=== PATIENT | female | born 1935 | race Caucasian/White ===

== ENCOUNTER 2016-07-15 11:45 | Inpatient (IN) | payer MEDICARE, OTHER ==
[2016-07-15] MEDS ORDERED: ACETAMINOPHEN TAB 325 MG TAB PO STA (12:35)
--- NOTE | 2016-07-15 12:49 | ED ---
Fall HPI - General Chief Complaint: Fall Stated Complaint: Fall. R Hip Pain, R Shoulder Pain Time Seen by Provider: 07/15/16 12:15 Source: patient, EMS Mode of arrival: wheelchair Limitations: altered mental status - History of Present Illness Initial Comments: The patient is a 80-year-old female who presents to the emergency department with a chief complaint fall. The patient resides at [facility] where she was found on the ground earlier today. According to staff at this facility, the patient slipped out of her wheelchair and fell onto her right side. The patient was not on the ground for a long period of time. After the fall, the patient was complaining of pain in her right shoulder as well as in her right hip. The patient takes a daily ASA 182 mg. The patient is not on any systemic anticoagulation. The patient is AAO 1 at baseline, oriented to herself only. Patient denies any pain on initial evaluation. According to staff at the nursing facility, the patient did not hit her head during her fall. Unfortunately, the patient cannot confirm this given her dementia. Patient denies any shortness of breath. Patient denies any abdominal pain. Patient denies any chest pain prior to the fall. - Related Data Home Medications Medication Instructions Recorded Confirmed Acetaminophen Tab [Tylenol Tab] 650 mg PO DAILY 07/15/16 07/15/16 Acetaminophen Tab [Tylenol Tab] 650 mg PO Q4H PRN 07/15/16 07/15/16 Aspirin EC [Ecotrin Low Dose] 162 mg PO DAILY@1700 07/15/16 07/15/16 Bisacodyl [Dulcolax] 10 mg RECTAL DAILY PRN 07/15/16 07/15/16 Donepezil [Aricept] 10 mg PO HS 07/15/16 07/15/16 LORazepam [Ativan] 0.5 mg PO Q12H PRN 07/15/16 07/15/16 Magnesium Hydroxide [Milk of 7,200 mg PO DAILY PRN 07/15/16 07/15/16 Magnesia Concentrate] Meloxicam [Mobic] 7.5 mg PO DAILY 07/15/16 07/15/16 Multivitamins, Thera [Multivitamin] 1 tab PO DAILY@1700 07/15/16 07/15/16 Na Phos,M-B/Na Phos,Di-Ba [Fleet 133 ml RECTAL DAILY PRN 07/15/16 07/15/16 Adult] Omeprazole [PriLOSEC] 20 mg PO DAILY 07/15/16 07/15/16 Timolol 0.5% Ophth Soln [Timoptic 1 drop BOTH EYES BID 07/15/16 07/15/16 0.5% Ophth Soln] risperiDONE [RisperDAL] 0.25 mg PO TID@0800,1400,2000 07/15/16 07/15/16 traZODone HCL [Desyrel] 50 mg PO HS 07/15/16 07/15/16 Allergies Allergy/AdvReac Type Severity Reaction Status Date / Time No Known Allergies Allergy Verified 07/15/16 11:59 Review of Systems ROS Statement: Those systems with pertinent positive or pertinent negative responses have been documented in the HPI. Unable to gather an extensive review of systems secondary to patient's underlying history of dementia. ROS Other: All systems not noted in ROS Statement are negative. Limitations: ROS unobtainable due to patients medical condition Musculoskeletal: Reports: other (Right shoulder pain. Right hip pain.) Past Medical History Past Medical History: Dementia, GERD/Reflux, Osteoarthritis (OA) History of Any Multi-Drug Resistant Organisms: None Reported Past Surgical History: Unable to Obtain Past Psychological History: No Psychological Hx Reported Smoking Status: Never smoker Past Alcohol Use History: None Reported Past Drug Use History: None Reported General Exam Limitations: altered mental status, physical limitation General appearance: alert, in no apparent distress Head exam: Present: atraumatic, normocephalic, normal inspection Eye exam: Present: normal appearance, PERRL (Pupils are 2 mm, equal and reactive ), EOMI. Absent: scleral icterus, conjunctival injection, periorbital swelling Pupils: Present: normal accommodation ENT exam: Present: normal exam, mucous membranes moist Neck exam: Present: normal inspection, other (No tenderness to palpation of the spinous processes of the cervical region of the spine. Patient in [place] collar) . Absent: tenderness Respiratory exam: Present: normal lung sounds bilaterally. Absent: respiratory distress, wheezes, rales, rhonchi, chest wall tenderness, decreased breath sounds Cardiovascular Exam: Present: regular rate, normal rhythm, normal heart sounds GI/Abdominal exam: Present: soft. Absent: distended, tenderness, guarding, rebound, rigid Extremities exam: Present: normal inspection, tenderness (Tenderness to palpation of the right upper humerus. Patient with 4-5 strength of the bilateral upper extremities. Patient with 2 out of 5 strength of the bilateral lower extremities.), other (No pain with rolling of the right lower extremity. No point tenderness to palpation of the right hip.) Back exam: Present: normal inspection. Absent: tenderness Neurological exam: Present: alert, other (Patient is AAO 1, which is her baseline.) Psychiatric exam: Present: normal affect, normal mood. Absent: depressed, agitated Skin exam: Present: warm, dry, intact Course Vital Signs 07/15/16 11:48 Temperature 96.9 F L Pulse Rate 66 Respiratory 15 Rate Blood Pressure 187/92 O2 Sat by Pulse 98 Oximetry Medical Decision Making - Medical Decision Making Patient is 80-year-old female who presents from nursing facility status post fall. Patient takes an aspirin 162 mg on a daily basis. No obvious signs of head injury. Staff at nursing facility state the patient did not hit her head. Fall but we'll be cautious in order CT head and CT cervical spine for patient an aspirin collar until after these exams performed C-spine can be cleared appropriately. Unfortunately, patient is AAO 1 at baseline. She remains that status in the ED. Patient complaining primarily of right shoulder pain. There is some point tenderness in the proximal humerus. However, there is no obvious deformity. There isswelling or bruising evident. EMS run sheet states the patient also complaining of right lower extremity pain, particularly in the hip region. There are note states that the patient's right lower extremity was externally rotated and on initial examination. However, the patient has a normal-appearing right hip on inspection. There is no point tenderness. She does complain of some mild pain within the joint itself. Otherwise distal pulses, movement, sensation noted to be intact. Check CBC, BMP, mag. Check PT/ INR. CPK. Check UA. EKG given patient's age. Chest x-ray, XR right shoulder , XR pelvis and right hip. EKG demonstrates NSR with evidence of a left bundle branch block. The QRS is within normal limits, however the QTC is prolonged at 510. MD is within normal limits. No evidence of any ischemic changes. - Lab Data Result diagrams: 07/15/16 12:50 07/15/16 12:50 Lab Results 12/07/15/16 07/15/16 Range/Units 12:50 12:50 12:50 WBC 7.3 (3.8-10.6) k/uL RBC 3.85 (3.80-5.40) m/uL Hgb 12.0 (11.4-16.0) gm/dL Hct 34.0 (34.0-46.0) % MCV 88.4 (80.0-100.0) fL MCH 31.1 (25.0-35.0) pg MCHC 35.2 (31.0-37.0) g/dL RDW 13.2 (11.5-15.5) % Plt Count 226 (150-450) k/uL Neutrophils % 83 % Lymphocytes % 11 % Monocytes % 3 % Eosinophils % 1 % Basophils % 1 % Neutrophils # 6.1 (1.3-7.7) k/uL Lymphocytes # 0.8 L (1.0-4.8) k/uL Monocytes # 0.2 (0-1.0) k/uL Eosinophils # 0.1 (0-0.7) k/uL Basophils # 0.0 (0-0.2) k/uL PT 11.8 (9.0-12.0) sec INR 1.2 (<1.1) Sodium 143 (137-145) mmol/L Potassium 3.7 (3.5-5.1) mmol/L Chloride 105 (98-107) mmol/L Carbon Dioxide 27 (22-30) mmol/L Anion Gap 11 mmol/L BUN 12 (7-17) mg/dL Creatinine 0.70 (0.52-1.04) mg/dL Est GFR (MDRD) Af Amer >60 (>60 ml/min/1.73 sqM) Est GFR (MDRD) Non-Af >60 (>60 ml/min/1.73 sqM) Glucose 109 H (74-99) mg/dL Calcium 8.7 (8.4-10.2) mg/dL Magnesium 2.0 (1.6-2.3) mg/dL Creatine Kinase 51 (30-135) U/L Urine Color Urine Appearance (Clear) Urine pH (5.0-8.0) Ur Specific [place] (1.001-1.035) Urine Protein (Negative) Urine Glucose (UA) (Negative) Urine Ketones (Negative) Urine Blood (Negative) Urine Nitrate (Negative) Urine Bilirubin (Negative) Urine Urobilinogen (<2.0) mg/dL Ur Leukocyte Esterase (Negative) 07/15/16 Range/Units 15:20 WBC (3.8-10.6) k/uL RBC (3.80-5.40) m/uL Hgb (11.4-16.0) gm/dL Hct (34.0-46.0) % MCV (80.0-100.0) fL MCH (25.0-35.0) pg MCHC (31.0-37.0) g/dL RDW (11.5-15.5) % Plt Count (150-450) k/uL Neutrophils % % Lymphocytes % % Monocytes % % Eosinophils % % Basophils % % Neutrophils # (1.3-7.7) k/uL Lymphocytes # (1.0-4.8) k/uL Monocytes # (0-1.0) k/uL Eosinophils # (0-0.7) k/uL Basophils # (0-0.2) k/uL PT (9.0-12.0) sec INR (<1.1) Sodium (137-145) mmol/L Potassium (3.5-5.1) mmol/L Chloride (98-107) mmol/L Carbon Dioxide (22-30) mmol/L Anion Gap mmol/L BUN (7-17) mg/dL Creatinine (0.52-1.04) mg/dL Est GFR (MDRD) Af Amer (>60 ml/min/1.73 sqM) Est GFR (MDRD) Non-Af (>60 ml/min/1.73 sqM) Glucose (74-99) mg/dL Calcium (8.4-10.2) mg/dL Magnesium (1.6-2.3) mg/dL Creatine Kinase (30-135) U/L Urine Color Yellow Urine Appearance Clear (Clear) Urine pH 6.5 (5.0-8.0) Ur Specific [place] 1.009 (1.001-1.035) Urine Protein Negative (Negative) Urine Glucose (UA) Negative (Negative) Urine Ketones 1+ H (Negative) Urine Blood Negative (Negative) Urine Nitrate Negative (Negative) Urine Bilirubin Negative (Negative) Urine Urobilinogen <2.0 (<2.0) mg/dL Ur Leukocyte Esterase Negative (Negative) Disposition Clinical Impression: Closed right hip fracture, Closed fracture of right proximal humerus, Fall Disposition: ADMITTED IP TO THIS HOSP Condition: Stable Decision to Admit Reason: Admit from EC
[2016-07-15 13:02] LABS: Basophils % (A) 1 %; CH 31.8; CHCM 36.1; Eosinophils # (A) 0.1 k/uL (0-0.7); Eosinophils % (A) 1 %; HDW 3.01; Luc # (Auto) 0.05; Luc % (Auto) 1; Lymphocytes # (A) 0.8 k/uL (1.0-4.8); Lymphocytes % (A) 11 %; MCH 31.1 pg (25.0-35.0); MCHC 35.2 g/dL (31.0-37.0); MCV 88.4 fL (80.0-100.0); Mean Platelet Volume 6.6; Monocytes # (A) 0.2 k/uL (0-1.0); Monocytes % (A) 3 %; Neutrophils # (A) 6.1 k/uL (1.3-7.7); Neutrophils % (A) 83 %; RBC 3.85 m/uL (3.80-5.40); RDW 13.2 % (11.5-15.5); WBC 7.3 k/uL (3.8-10.6); WBC (Perox) 7.39
[2016-07-15 13:14] LABS: Anion Gap 11 mmol/L; Blood Urea Nitrogen 12 mg/dL (7-17); Calcium 8.7 mg/dL (8.4-10.2); Carbon Dioxide 27 mmol/L (22-30); Chloride 105 mmol/L (98-107); Creatine Kinase 51 U/L (30-135); Glucose 109 mg/dL (74-99); Non-African American GFR(MDRD) >60 (>60 ml/min/1.73 sqM); Potassium 3.7 mmol/L (3.5-5.1); Sodium 143 mmol/L (137-145)
[2016-07-15 13:19] LABS: INR 1.2 (<1.1); Prothrombin Time 11.8 sec (9.0-12.0)
--- NOTE | 2016-07-15 14:07 | CT ---
EXAMINATION TYPE: CT brain leonardo aguilar DATE OF EXAM: 07/15/2016 1:57 PM COMPARISON: NONE HISTORY: Patient poor historian. Patient fell today. Patient c-collared at time of exam. CT DLP: 1376.9 mGycm Automated exposure control for dose reduction was used. TECHNIQUE: CT scan of the head and cervical spine are performed without contrast. FINDINGS: There is no acute intracranial hemorrhage or midline shift identified. There is ventricul ar and sulcal prominence consistent with diffuse cerebral atrophy. Is low-attenuation periventricula r white matter consistent with product of chronic small vessel ischemic change. The globes are intact and the visualized sinuses are clear. The calvarium is intact Cervical spine is visualized in its entirety from C1 through upper thoracic levels and demonstrates e xaggerated cervical curvature without evidence of acute fracture or dislocation. Prevertebral soft t issue appears within normal limits. The C1-C2 articulation is within normal limits on the coronal im ages. Osseous structures are markedly demineralized. Vertebral body heights are maintained. There is modera te to severe spurring and moderate disc space narrowing C5-C6 and C6-C7 levels. Posterior spur disc c omplex effaces anterior thecal sac at C5-C6 level. Review of axial images shows multilevel uncoverteb ral facet degenerative changes bilaterally. Visualized lung apices are clear. IMPRESSION: 1. There is no acute fracture or dislocation evident in the cervical spine. Demineralization with mul tilevel degenerative changes are seen as detailed above. 2. No acute intracranial hemorrhage or midline shift is seen. There is background of moderate to tj re diffuse cerebral atrophy and chronic small vessel ischemic change noted.
--- NOTE | 2016-07-15 14:57 | XR ---
EXAMINATION TYPE: XR chest 1V DATE OF EXAM: 07/15/2016 2:51 PM COMPARISON: NONE HISTORY: Pain TECHNIQUE: Single frontal view of the chest is obtained. FINDINGS: There is no focal air space opacity, pleural effusion, or pneumothorax seen. The cardiac silhouette size is within normal limits. The osseous structures are intact. The heart is enlarged. There is diffuse osteopenia and severe arthritic change involving the shoulder s bilaterally findings suspicious for fracture involving the humeral neck. IMPRESSION: 1. Cardiomegaly 2. Right humeral neck fracture
--- NOTE | 2016-07-15 14:59 | XR ---
EXAMINATION TYPE: XR shoulder complete RT DATE OF EXAM: 07/15/2016 2:51 PM CLINICAL HISTORY: Right shoulder pain since fall injury. TECHNIQUE: Three views of the right shoulder are obtained. COMPARISON: None. FINDINGS: Osseous structures are significantly demineralized which is noted to lower radiographic sen sitivity. There may be old fracture deformity right humeral head level as there is deformity. There i s new linear lucency consistent with acute comminuted minimally displaced fracture surgical neck of r ight proximal humerus. Involvement of greater and lesser tuberosities is difficult to exclude. Acromi oclavicular joint is maintained. There is prominent spurring and joint space loss glenohumeral joint inferiorly with sclerosis. The visualized ribs are intact and unremarkable. IMPRESSION: There is an acute comminuted minimally displaced fracture right proximal humeral head le mis through the surgical neck. (Initial encounter close type post traumatic fracture).
--- NOTE | 2016-07-15 14:59 | XR ---
EXAMINATION TYPE: XR Hip RT and AP Pelvis DATE OF EXAM: 07/15/2016 2:51 PM COMPARISON: NONE HISTORY: Pain TECHNIQUE: A single AP view of the pelvis is obtained. Two views of the right hip are obtained. FINDINGS: There is acute displaced fracture involving the right femoral neck. Diffuse osteopenia noted. Degenerative change of the spine. Arthropathy involving both hip joints. Vascular calcifications in the pelvis noted. Larger calcifications may represent fibroid. IMPRESSION: 1. Displaced right femoral neck fracture
[2016-07-15 15:41] LABS: Appearance,Urine Clear (Clear); Bilirubin,Urine Negative (Negative); Glucose,Urine (UA) Negative (Negative); Ketones,Urine 1+ (Negative); Leukocyte Esterase,Urine Negative (Negative); Nitrite,Urine Negative (Negative); PH, Urine 6.5 (5.0-8.0); Protein,Urine Negative (Negative); Specific Gravity,Urine 1.009 (1.001-1.035); UA Billing (MACRO vs. MICRO) CHEM; Urobilinogen,Urine <2.0 mg/dL (<2.0)
[2016-07-15] MEDS ORDERED: NALOXONE 0.4 MG/ML 1 ML VIAL IV PRN (16:11)
[2016-07-15] MEDS ORDERED: ACETAMINOPHEN TAB 325 MG TAB PO PRN (16:11)
[2016-07-15] MEDS ORDERED: NA PHOS,M-B/NA PHOS,DI-BA 133 ML ENEMA RECTAL PRN (16:16)
[2016-07-15] MEDS ORDERED: MAGNESIUM HYDROXIDE 2,400 MG/10 ML CUP PO PRN (16:16)
[2016-07-15] MEDS ORDERED: LORazepam 0.5 MG TAB PO PRN (16:16)
[2016-07-15] MEDS ORDERED: BISACODYL 10 MG SUPP RECTAL PRN (16:16)
[2016-07-15] MEDS: SODIUM CHLORIDE 0.9% 1,000 ML IV SCH (16:32)
[2016-07-15] MEDS: PANTOPRAZOLE 40 MG/10 ML VIAL IV SCH (21:17)
[2016-07-15] MEDS: TIMOLOL 0.5% OPHTH DROPS 5 ML BTL BOTH EYES SCH (21:17)
[2016-07-15] MEDS: MULTIVITAMINS, THERA 1 EACH TAB PO SCH (21:18)
[2016-07-15] MEDS: traZODone HCL 50 MG TAB PO SCH (21:18)
[2016-07-15] MEDS: risperiDONE 0.25 MG TAB PO SCH (21:18)
--- NOTE | 2016-07-15 21:22 | P.CONS ---
History of Present Illness - Reason for Consult Consult date: 07/15/16 - Chief Complaint fall with fractures - History of Present Illness this is a pleasant 80-year-old female patient of Dr. Macias currently resides at [facility]. She has underlying history off GERD and dementia osteoarthritis previous CVA, osteoporosis and impaired balance impaired gait. She normally uses wheelchair for community ambulation and was in the bathroom apparently had slipped, had fallen down hitting her right hip and right shoulder. Patient has advanced dementia and not having enough memory to recollect eventsprior to the fall. Patient was evaluated in emergency room with imaging studies to include a right to shoulder x-ray which showed acute, comminuted Minimally displacedright proximal humeral head fracture through the surgical neck, hip x-rays pelvis x- ray shows displaced right femoral neck fracture, vascular calcifications and pelvis noted with large calcifications that may represent fibroid, diffuse OSHA carola and degenerative changes of the spine with arthropathy involving both hipsEKG shows normal sinus rhythm heart rate 69 left bundle branch block no acute ST-T wave changes nonspecific ST-T wave changes in V4 to V6, chest x-ray shows cardiomegaly with right humeral neck fracture, no focal airspace opacification pleural effusion or pneumothorax patient was admitted to Dr. Gomez, orthopedics were consulted for medical management and preop clearancepatient night denies any chest pain shortness of breath difficulty breathing no cough no fever no chills. Urinalysis was obtained and was negative, hemoglobin is 12,platelet count of 226 creatinine of 0.70 Review of Systems Constitutional: Reports as per HPI, Denies anorexia, Denies chills, Denies chronic headaches, Denies chronic pain, Denies daytime sleepiness, Denies fatigue, Denies fever, Denies lethargy, Denies malaise, Denies night sweats, Denies poor appetite, Denies sweats, Denies weakness, Denies weight gain, Denies weight loss Eyes: denies diplopia, denies pain, denies photophobia Ears, nose, mouth and throat: Reports as per HPI, Denies ant. neck pain, Denies bleeding gums, Denies dental pain, Denies dysphagia, Denies epistaxis, Denies headache, Denies hoarseness, Denies mouth pain, Denies nasal congestion, Denies nasal discharge, Denies neck fullness/pressure, Denies neck lump, Denies nose pain, Denies odynophagia, Denies post-nasal drip, Denies sinus pain, Denies sinus pressure, Denies swelling in mouth, Denies swelling in throat, Denies sore throat, Denies vertigo, Denies voice changes Cardiovascular: Reports as per HPI, Denies chest pain, Denies claudication, Denies decreased exercise tolerance, Denies dyspnea on exertion, Denies edema, Denies high blood pressure, Denies irregular heart beat, Denies leg edema, Denies lightheadedness, Denies orthopnea, Denies palpitations, Denies paroxysmal nocturnal dyspnea, Denies phlebitis, Denies rapid heart beat, Denies shortness of breath, Denies syncope Respiratory: Reports as per HPI, Denies congestion, Denies cough, Denies cough with sputum, Denies dyspnea, Denies excessive sputum, Denies hemoptysis, Denies home oxygen, Denies pain, Denies pain on inspiration, Denies pleurisy, Denies respiratory infections, Denies sleep apnea, Denies snoring, Denies wheezing Gastrointestinal: Reports as per HPI, Denies abdominal pain, Denies belching, Denies bloating, Denies BRBPR, Denies change in bowel habits, Denies coffee ground emesis, Denies constipation, Denies diarrhea, Denies dyspepsia, Denies early satiety, Denies excessive gas, Denies heartburn, Denies hematemesis, Denies hematochezia, Denies indigestion, Denies jaundice, Denies lactose intolerance, Denies loss of appetite, Denies melena, Denies nausea, Denies vomiting Genitourinary: Reports as per HPI, Reports dysmenorrhea, Denies abnormal vaginal bleeding, Denies decreased libido, Denies difficulty conceiving, Denies difficulty voiding, Denies dyspareunia, Denies dysuria, Denies flank pain, Denies genital sores, Denies hematuria, Denies hot flashes, Denies incomplete emptying, Denies kidney stones, Denies menorrhagia, Denies mixed incontinence, Denies nocturia, Denies pelvic pain, Denies post void dribbling, Denies , Denies prolapse symptoms, Denies stress incontinence, Denies urge incontinence , Denies urgency, Denies urinary frequency, Denies vaginal discharge, Denies vaginal dryness, Denies vaginal itching, Denies vaginal odor Menstruation: Reports as per HPI, Reports postmenopausal, Denies amenorrhea, Denies amenorrhea on BC, Denies currently menstrual, Denies cycle < 21 days, Denies cycle > 35 days, Denies cycle variable, Denies menses 1-7 days, Denies menses 8 or > days, Denies menses variable, Denies period heavy, Denies period light, Denies period normal, Denies period spotting, Denies post hysterectomy, Denies premenarcheal Musculoskeletal: Reports as per HPI, Reports fractures, Reports gait dysfunction , Denies arm numbness/tingling, Denies atrophy, Denies frequent falls, Denies hot joints, Denies leg numbness/tingling, Denies limitation of motion, Denies loss of height, Denies low back pain, Denies morning stiffness, Denies muscle cramps, Denies muscle weakness, Denies myalgias, Denies neck pain, Denies neck stiffness, Denies prior amputations, Denies redness of joints, Denies shooting arm pain, Denies shooting leg pain Musculoskeletal: right: hip pain, shoulder pain, shoulder swelling Integumentary: Reports as per HPI, Denies acne, Denies boils, Denies brittle nails, Denies change in hair/nails, Denies color changes, Denies darkening of skin, Denies depigmentation, Denies dryness, Denies foot/leg ulcers, Denies growths, Denies hirsutism, Denies lesions, Denies onychomycosis, Denies pruritus , Denies rash, Denies sores, Denies striae, Denies unusual bruising, Denies wounds Neurological: Reports as per HPI, Reports confusion, Denies aphasia, Denies ataxia, Denies balance difficulties, Denies burning pain, Denies change in mentation, Denies change in smell/taste, Denies change in speech, Denies convulsions, Denies double vision, Denies gait dysfunction, Denies head injury, Denies headaches, Denies hearing difficulties, Denies lack of coordination, Denies loss of vision, Denies memory loss, Denies migraines, Denies motor disturbance, Denies numbness, Denies paralysis, Denies paresthesias, Denies seizures, Denies sensory deficit, Denies spasticity, Denies syncope, Denies tic , Denies tingling, Denies transient paralysis, Denies tremors, Denies vertigo, Denies weakness, Denies visual changes Psychiatric: Reports as per HPI, Denies anhedonia, Denies anxiety, Denies anxiety attacks, Denies change in appetite, Denies change in libido, Denies change in sleep habits, Denies confusion, Denies depression, Denies difficulty concentrating, Denies disorientation, Denies hallucinations, Denies hopelessness , Denies hypersomnia, Denies insomnia, Denies irritability, Denies memory loss, Denies mood swings, Denies paranoia, Denies sadness/tearfulness, Denies sleep disturbances, Denies suicidal ideation Endocrine: Reports as per HPI, Denies cold intolerance, Denies deepening of the voice, Denies excessive sweating, Denies excessive thirst, Denies fatigue, Denies flushing, Denies heat intolerance, Denies high blood sugars, Denies increase in ring/shoe/hat size, Denies low blood sugars, Denies nocturia, Denies palpitations, Denies polydipsia, Denies polyphagia, Denies polyuria, Denies proptosis, Denies recent glucocorticoid use, Denies thyroid mass, Denies weight change Hematologic/Lymphatic: Reports as per HPI Allergic/Immunologic: Reports as per HPI, Reports anaphylaxis, Denies allergic rhinitis, Denies angioedema, Denies gluten intolerance, Denies persistent infections, Denies seasonal allergies, Denies urticaria, Denies wheezing Past Medical History Past Medical History: CVA/TIA, Dementia, GERD/Reflux, Osteoarthritis (OA) History of Any Multi-Drug Resistant Organisms: None Reported Past Surgical History: Unable to Obtain Past Psychological History: No Psychological Hx Reported Smoking Status: Never smoker Past Alcohol Use History: None Reported Past Drug Use History: None Reported - Past Family History Father Additional Family Medical History / Comment(s): DAD AT AGE 98 FROM OLD AGE Mother Family Medical History: Congestive Heart Failure (CHF) Additional Family Medical History / Comment(s): MOM AT AGE 90 CHF Brother(s) Family Medical History: No Reported History (4 siblings patient cannot recollect how many brothers and sisters one from leukemia 1 from old age according to the old reports) Daughter(s) Family Medical History: Unable to Obtain Medications and Allergies Home Medications Medication Instructions Recorded Confirmed Type Acetaminophen Tab [Tylenol Tab] 650 mg PO DAILY 07/15/16 07/15/16 History Acetaminophen Tab [Tylenol Tab] 650 mg PO Q4H PRN 07/15/16 07/15/16 History Aspirin EC [Ecotrin Low Dose] 162 mg PO DAILY@1700 07/15/16 07/15/16 History Bisacodyl [Dulcolax] 10 mg RECTAL DAILY PRN 07/15/16 07/15/16 History Donepezil [Aricept] 10 mg PO HS 07/15/16 07/15/16 History LORazepam [Ativan] 0.5 mg PO Q12H PRN 07/15/16 07/15/16 History Magnesium Hydroxide [Milk of 7,200 mg PO DAILY PRN 07/15/16 07/15/16 History Magnesia Concentrate] Meloxicam [Mobic] 7.5 mg PO DAILY 07/15/16 07/15/16 History Multivitamins, Thera [Multivitamin] 1 tab PO DAILY@1700 07/15/16 07/15/16 History Na Phos,M-B/Na Phos,Di-Ba [Fleet 133 ml RECTAL DAILY PRN 07/15/16 07/15/16 History Adult] Omeprazole [PriLOSEC] 20 mg PO DAILY 07/15/16 07/15/16 History Timolol 0.5% Ophth Soln [Timoptic 1 drop BOTH EYES BID 07/15/16 07/15/16 History 0.5% Ophth Soln] risperiDONE [RisperDAL] 0.25 mg PO TID@0800,1400,199907/15/16 07/15/16 History traZODone HCL [Desyrel] 50 mg PO HS 07/15/16 07/15/16 History Allergies Allergy/AdvReac Type Severity Reaction Status Date / Time No Known Allergies Allergy Verified 07/15/16 11:59 Physical Exam Vitals: Vital Signs Temp Pulse Pulse Resp BP BP Pulse Ox 07/15/16 17:15 97.6 F 68 17 150/88 95 07/15/16 16:46 98.2 F 82 20 168/86 95 Intake and Output 07/15/16 07/15/16 07/15/16 06:59 14:59 22:59 Intake Total 120 Balance 120 Intake: Oral 120 - Constitutional General appearance: average body habitus, no acute distress - EENT Eyes: no abnormal pupil, anicteric sclerae, no disc margins sharp, no edentulous , EOMI, PERRLA, no fundus normal, no photophobia, dentition normal, no poor dentition, no ptosis, no scleral icterus, normal apperance ENT: no hard of hearing, hearing grossly normal, NA/AT, normal oropharynx, no other, no pharyngeal erythema, no thrush, no tonsillar exudates, no tonsillar swelling - Neck Neck: no lymphadenopathy, normal ROM, no other, no rigidity, no stridor, no thyromegaly - Respiratory Respiratory: bilateral: CTA, negative: diminished, dullness, rales, rhonchi, wheezing, prolonged expiration, prolonged inspiration, other - Cardiovascular Rhythm: regular Heart sounds: normal: S1, S2 Abnormal Heart Sounds: no systolic murmur, no diastolic murmur, no rub, no S3 Gallop, no S4 Gallop, no click, no other - Gastrointestinal General gastrointestinal: distended - Musculoskeletal Musculoskeletal: strength equal bilaterally Results CBC & Chem 7: 07/15/16 12:50 07/15/16 12:50 Labs: Laboratory Results WBC 7.3 k/uL (3.8-10.6) 07/15/16 12:50 RBC 3.85 m/uL (3.80-5.40) 07/15/16 12:50 Hgb 12.0 gm/dL (11.4-16.0) 07/15/16 12:50 Hct 34.0 % (34.0-46.0) 07/15/16 12:50 MCV 88.4 fL (80.0-100.0) 07/15/16 12:50 MCH 31.1 pg (25.0-35.0) 07/15/16 12:50 MCHC 35.2 g/dL (31.0-37.0) 07/15/16 12:50 RDW 13.2 % (11.5-15.5) 07/15/16 12:50 Plt Count 226 k/uL (150-450) 07/15/16 12:50 Neutrophils % 83 % 07/15/16 12:50 Lymphocytes % 11 % 07/15/16 12:50 Monocytes % 3 % 07/15/16 12:50 Eosinophils % 1 % 07/15/16 12:50 Basophils % 1 % 07/15/16 12:50 Neutrophils # 6.1 k/uL (1.3-7.7) 07/15/16 12:50 Lymphocytes # 0.8 k/uL (1.0-4.8) L 07/15/16 12:50 Monocytes # 0.2 k/uL (0-1.0) 07/15/16 12:50 Eosinophils # 0.1 k/uL (0-0.7) 07/15/16 12:50 Basophils # 0.0 k/uL (0-0.2) 07/15/16 12:50 PT 11.8 sec (9.0-12.0) 07/15/16 12:50 INR 1.2 (<1.1) 07/15/16 12:50 Sodium 143 mmol/L (137-145) 07/15/16 12:50 Potassium 3.7 mmol/L (3.5-5.1) 07/15/16 12:50 Chloride 105 mmol/L (98-107) 07/15/16 12:50 Carbon Dioxide 27 mmol/L (22-30) 07/15/16 12:50 Anion Gap 11 mmol/L 07/15/16 12:50 BUN 12 mg/dL (7-17) 07/15/16 12:50 Creatinine 0.70 mg/dL (0.52-1.04) 07/15/16 12:50 Est GFR (MDRD) Af Amer >60 (>60 ml/min/1.73 sqM) 07/15/16 12:50 Est GFR (MDRD) Non-Af >60 (>60 ml/min/1.73 sqM) 07/15/16 12:50 Glucose 109 mg/dL (74-99) H 07/15/16 12:50 Calcium 8.7 mg/dL (8.4-10.2) 07/15/16 12:50 Magnesium 2.0 mg/dL (1.6-2.3) 07/15/16 12:50 Creatine Kinase 51 U/L (30-135) 07/15/16 12:50 Urine Color Yellow 07/15/16 15:20 Urine Appearance Clear (Clear) 07/15/16 15:20 Urine pH 6.5 (5.0-8.0) 07/15/16 15:20 Ur Specific [place] 1.009 (1.001-1.035) 07/15/16 15:20 Urine Protein Negative (Negative) 07/15/16 15:20 Urine Glucose (UA) Negative (Negative) 07/15/16 15:20 Urine Ketones 1+ (Negative) H 07/15/16 15:20 Urine Blood Negative (Negative) 07/15/16 15:20 Urine Nitrate Negative (Negative) 07/15/16 15:20 Urine Bilirubin Negative (Negative) 07/15/16 15:20 Urine Urobilinogen <2.0 mg/dL (<2.0) 07/15/16 15:20 Ur Leukocyte Esterase Negative (Negative) 07/15/16 15:20 Assessment and Plan Plan: 1. traumatic fractures from a sitting position at a wheel hair level sustaining fractures in the humerus, She is to undergo surgical intervention plaaned for 07/16. She will be classified as class 2 ASA risk with preexisting controlled disease undergoing surgical orthopedic intervention. She is cleared with moderate risk, we will monitor for perioperative complications and address other issues corresponding to her premorbid conditions. Incentive spirometry is provided. DVT prophylasxis with heparin sq 5000u q12 hrs to be held 12 hrs prior to surgery. 2. advanced osteoporosis secondary to advanced age 3. Dementia, alzheimers type, on aricept 4. Osteoarthritis, impaired balance , wheelchair on community ambulation. therapies are consulted 5. VTE prophylaxis with heparin SQ. can be transitioned to oral aspirin post op. 6. GI prophylaxis. on ppi or h2 blayne 7. Discharge planning. expected return to [facility] with therapies Thank you Dr Gomez in allowing us to participate in the care of your patient. We will fololw her with you during the perioperitve course and will make recommendations and adjustments to her care depending on he clinical progress
[2016-07-16] MEDS: HEPARIN SODIUM,PORCINE 5,000 UNIT/ML 1 ML VIAL SQ SCH ×3 (00:45→21:34)
[2016-07-16] MEDS: DONEPEZIL 10 MG TAB PO SCH ×2 (00:45→21:29)
[2016-07-16] MEDS: SODIUM CHLORIDE 0.9% 1,000 ML IV SCH ×2 (06:19→17:59)
[2016-07-16 07:28] LABS: Basophils # (A) 0.1 k/uL (0-0.2); Basophils % (A) 1 %; CH 31.9; CHCM 36.5; Eosinophils # (A) 0.2 k/uL (0-0.7); Eosinophils % (A) 2 %; HCT 34.4 % (34.0-46.0); HDW 3.02; HGB 12.2 gm/dL (11.4-16.0); Luc # (Auto) 0.06; Luc % (Auto) 1; Lymphocytes # (A) 0.7 k/uL (1.0-4.8); Lymphocytes % (A) 8 %; MCH 31.1 pg (25.0-35.0); MCHC 35.4 g/dL (31.0-37.0); MCV 87.8 fL (80.0-100.0); Mean Platelet Volume 6.7; Monocytes # (A) 0.4 k/uL (0-1.0); Monocytes % (A) 4 %; Neutrophils # (A) 7.7 k/uL (1.3-7.7); Neutrophils % (A) 85 %; RBC 3.91 m/uL (3.80-5.40); RDW 13.2 % (11.5-15.5); WBC 9.1 k/uL (3.8-10.6); WBC (Perox) 10.14
[2016-07-16] MEDS: PANTOPRAZOLE 40 MG/10 ML VIAL IV SCH (07:30)
[2016-07-16] MEDS: risperiDONE 0.25 MG TAB PO SCH ×4 (07:31→21:29)
[2016-07-16] MEDS: MELOXICAM 7.5 MG TAB PO SCH (07:31)
[2016-07-16] MEDS: TIMOLOL 0.5% OPHTH DROPS 5 ML BTL BOTH EYES SCH ×2 (07:34→21:33)
[2016-07-16 07:41] LABS: ALT 31 U/L (9-52); AST 18 U/L (14-36); Alkaline Phosphatase 60 U/L (38-126); Anion Gap 10 mmol/L; Blood Urea Nitrogen 11 mg/dL (7-17); Calcium 8.8 mg/dL (8.4-10.2); Carbon Dioxide 26 mmol/L (22-30); Chloride 105 mmol/L (98-107); Glucose 122 mg/dL (74-99); Non-African American GFR(MDRD) >60 (>60 ml/min/1.73 sqM); Potassium 3.4 mmol/L (3.5-5.1); Sodium 141 mmol/L (137-145); Total Bilirubin 1.1 mg/dL (0.2-1.3); Total Protein 6.2 g/dL (6.3-8.2)
--- NOTE | 2016-07-16 08:50 | P.HPOR ---
History of Present Illness H&P Date: 07/16/16 Chief Complaint: Right hip and right proximal humerus fractures This is a 80-year-old female who fell out of her wheelchair sustaining injury to her right hip and right shoulder. She resides in an extended care facility and is nonambulatory. She has history of dementia. She is brought to the emergency department and on exam and x-ray she is found to have a minimally displaced intertrochanteric fracture of the right hip and a nondisplaced fracture of the right proximal humerus. She is admitted to our service for surgical intervention of the hip. Past Medical History Past Medical History: CVA/TIA, Dementia, GERD/Reflux, Osteoarthritis (OA) Additional Past Medical History / Comment(s): 07-15-16 FALL RT HIP/RT PROXIMAL HUMEROUS FX'S. OTHER PAST HX INCLUDES: GLAUCOMA WITH SOME VISION LOSS, POSS CVA (PER NURSE AT [facility], OSTEOPOROSIS History of Any Multi-Drug Resistant Organisms: None Reported Past Surgical History: Unable to Obtain Additional Past Surgical History / Comment(s): PARTIAL THYROIDECTOMY, RT KNEE SX Past Anesthesia/Blood Transfusion Reactions: No Reported Reaction Past Psychological History: No Psychological Hx Reported Additional Psychological History / Comment(s): DEMENTIA. CURRENTLY LIVING AT [facility]. Smoking Status: Never smoker Past Alcohol Use History: None Reported Past Drug Use History: None Reported - Past Family History Father Additional Family Medical History / Comment(s): DAD AT AGE 98 FROM OLD AGE Mother Family Medical History: Congestive Heart Failure (CHF) Additional Family Medical History / Comment(s): MOM AT AGE 90 CHF Brother(s) Family Medical History: No Reported History (4 siblings patient cannot recollect how many brothers and sisters one from leukemia 1 from old age according to the old reports) Daughter(s) Family Medical History: Unable to Obtain Medications and Allergies Home Medications Medication Instructions Recorded Confirmed Type Acetaminophen Tab [Tylenol Tab] 650 mg PO DAILY 07/15/16 07/15/16 History Acetaminophen Tab [Tylenol Tab] 650 mg PO Q4H PRN 07/15/16 07/15/16 History Aspirin EC [Ecotrin Low Dose] 162 mg PO DAILY@1700 07/15/16 07/15/16 History Bisacodyl [Dulcolax] 10 mg RECTAL DAILY PRN 07/15/16 07/15/16 History Donepezil [Aricept] 10 mg PO HS 07/15/16 07/15/16 History LORazepam [Ativan] 0.5 mg PO Q12H PRN 07/15/16 07/15/16 History Magnesium Hydroxide [Milk of 7,200 mg PO DAILY PRN 07/15/16 07/15/16 History Magnesia Concentrate] Meloxicam [Mobic] 7.5 mg PO DAILY 07/15/16 07/15/16 History Multivitamins, Thera [Multivitamin] 1 tab PO DAILY@1700 07/15/16 07/15/16 History Na Phos,M-B/Na Phos,Di-Ba [Fleet 133 ml RECTAL DAILY PRN 07/15/16 07/15/16 History Adult] Omeprazole [PriLOSEC] 20 mg PO DAILY 07/15/16 07/15/16 History Timolol 0.5% Ophth Soln [Timoptic 1 drop BOTH EYES BID 07/15/16 07/15/16 History 0.5% Ophth Soln] risperiDONE [RisperDAL] 0.25 mg PO TID@0800,1400,2000 07/15/16 07/15/16 History traZODone HCL [Desyrel] 50 mg PO HS 07/15/16 07/15/16 History Allergies Allergy/AdvReac Type Severity Reaction Status Date / Time No Known Allergies Allergy Verified 07/15/16 11:59 Physical Examination This is a 80-year-old female in no acute distress. She is pleasantly confused. Exam of the head neck reveal no deformities. There is no apparent pain with palpation of cervical spine or paraspinal musculature. Exam the upper extremities reveals no obvious deformity. There is pain with motion of the right shoulder. There is no ecchymosis or erythema. There is minimal soft tissue swelling noted. She has full wrist and finger motion bilaterally. Neurovascular status to the upper extremity is intact. Exam of the lower extremities reveals shortening and external rotation to the right lower extremity. There is pain with any motion of the right hip. She has full foot and ankle motion without difficulty or pain. Pedal pulse +2/4. Neurovascular status to the lower extremities is intact. Results X-rays of the right shoulder reveal a nondisplaced humeral head fracture. X-rays of the right hip and pelvis reveal a minimally displaced intertrochanteric fracture of the right hip. - Labs Labs: Abnormal Lab Results - Last 24 Hours (Table) 07/16/16 07/16/16 Range/Units 07:04 07:04 Lymphocytes # 0.7 L (1.0-4.8) k/uL Potassium 3.4 L (3.5-5.1) mmol/L Glucose 122 H (74-99) mg/dL Total Protein 6.2 L (6.3-8.2) g/dL Albumin 3.2 L (3.5-5.0) g/dL H & H 07/16/16 Range/Units 07:04 Hgb 12.2 (11.4-16.0) gm/dL Hct 34.4 (34.0-46.0) % Result Diagrams: 07/16/16 07:04 07/16/16 07:04 Assessment and Plan (1) Closed fracture of right proximal humerus Status: Acute (2) Closed intertrochanteric fracture of right hip Status: Acute Plan: The clinical and x-ray findings are discussed with the patient and her nursing staff. It is recommended that she undergo closed reduction and insertion of intertrochanteric nail of the right hip. We will treat the humeral fracture with a sling. There is no surgical intervention indicated regarding the shoulder at this time. We are planning surgery for this afternoon if the patient is cleared medically. We anticipate that she may be transferred back to her extended care facility 2-3 days postoperatively if cleared medically.
[2016-07-16] MEDS: MULTIVITAMINS, THERA 1 EACH TAB PO SCH ×2 (15:53→15:54)
[2016-07-16] MEDS ORDERED: PROPOFOL 10 MG/ML 20 ML VIAL IV ONE (16:36)
[2016-07-16] MEDS ORDERED: ePHEDrine 50 MG/ML 1 ML AMP ONE (16:36)
[2016-07-16] MEDS ORDERED: KETAMINE 10 MG/ML 20 ML VIAL ONE (16:36)
[2016-07-16] MEDS ORDERED: SUCCINYLCHOLINE CHLORIDE 100 MG/5 ML SYR IV ONE (16:36)
[2016-07-16] MEDS ORDERED: fentaNYL (PF) 50 MCG/ML 2 ML AMP ONE (16:36)
[2016-07-16] MEDS ORDERED: IV FLUID CONTINUATION 900 ML IV ONE (16:36)
[2016-07-16] MEDS ORDERED: MIDAZOLAM 2 MG/2 ML VIAL ONE (16:36)
[2016-07-16] MEDS: SODIUM CHLORIDE 0.9% 50 ML with ceFAZolin 2,000 MG IV ONE ×4 (17:04→21:40)
--- NOTE | 2016-07-16 17:55 | P.OP ---
Date of Procedure: 07/16/16 Preoperative Diagnosis: Postoperative Diagnosis: Procedure(s) Performed: SURGEON: HYUN METZGER MD NURSES MEDICAL ASSISTANTS PHLEBOTOMISTS: Angie Peters (Assistance with: Patient positioning, retraction, exposure, hemostasis, fixation, irrigation, closure, dressing) PREOPERATIVE DIAGNOSIS: Right hip intertrochanteric fracture. POSTOPERATIVE DIAGNOSIS: Right hip intertrochanteric fracture. OPERATION: Right hip intertrochanteric fracture closed reduction and intramedullary nailing using Synthes IT nail. ANESTHESIA: Gen. ESTIMATED BLOOD LOSS: 100 mL. COMPLICATIONS: None OPERATIVE FINDINGS: See dictation INDICATIONS: Mrs. Pastor is a 80-year-old female with a history of right intertrochanteric fracture. She has a history of dementia The patient presents to the operating room today for closed reduction and intramedullary nailing. I discussed the risks of surgery in detail as being inclusive of but not limited to: Bleeding, infection, scarring, discomfort, blood vessel and/or nerve damage , need for further surgery, malunion, nonunion, gait disturbance including persistent or permanent limp, limb length inequality, arthritis, hardware failure, blood clot, pulmonary embolism, , and other risks. The consent form has been signed by her power of state attorney, her daughter. PROCEDURE: After appropriate consent was obtained, the patient was taken to the operating room and placed in supine position. Gen. anesthetic was administered and after confirmation of adequate anesthesia, the patient was carefully placed in the supine position on the operating room table in the fracture table. The patient was placed up against a well-padded peroneal post. Care was taken to make sure about that all pressure points were adequately padded. The affected leg was placed in boot traction and the unaffected leg was placed in a well leg de leon. Using gentle longitudinal distraction as well as adduction and internal rotation , the fracture was reduced as assessed by AP and lateral C-arm imaging. Once a satisfactory reduction had been obtained, the thigh was prepped and draped in the usual aseptic fashion using ChloraPrep. Ioban drape was used for the case and the patient received intravenous antibiotics prior to incision. Timeout was called, confirming patient identity, side, procedure, and administration of antibiotics. The incision was then created with a #10 blade just proximal to the greater trochanter laterally. It was carried down through skin into the subcutaneous tissues and through fascia. Hemostasis was obtained using electrocautery. The tip of the greater trochanter was palpated and a guide pin was placed at the tip and directed into the femoral shaft as assessed with C-arm imaging. Once optimal pin position had been obtained, a 17 mm reamer was used over the guide pin to create a path for the IT nail. IT nail selected was assembled to the insertion jig on the back table and bushings were checked for accuracy. The nail was then inserted using gentle mallet taps until it was fully deployed. The amount of rotation of the implant was assessed based on the amount of anteversion of the femoral neck. This was rotated to match the patient's femoral neck anteversion and the helical blade guide was placed through the insertion jig and through an incision on the lateral side of the thigh more distal than the first. Once this guide was placed against the lateral cortex of the femur, a guide pin was drilled into the central region of the femoral head and neck as based on AP and lateral C-arm imaging. Once optimal pin position had been obtained, the guidewire was measured and appropriately sized helical blade was selected. The path for the helical blade was prepared using a tapered reamer. The helical blade was then inserted using gentle mallet taps along the guidewire until it was fully deployed. There was no displacement of the fracture during this step. The anti-rotation screw was locked down and the insertion apparatus for the helical blade was removed. The guide pin was then removed. Traction was then removed from the leg and the distal interlock was placed through the jig using standard technique. Finally, the insertion jig for the nail was removed and final C-arm images were taken and saved in both AP and lateral planes. The final x-rays showed satisfactory positioning of the implant and good reduction of the fracture. The top of the nail was plugged with a small quantity of bone wax and the incisions were then thoroughly irrigated with normal saline. Final hemostasis was obtained using electrocautery and closure of the fascia was performed using 0-Vicryl suture. 2-0 Vicryl suture was used in the subcutaneous tissues and wilson were used for the skin. Sterile dressing was then applied and the patient was carefully removed from the fracture table frame and placed onto the stretcher. The patient tolerated the procedure well. There were no complications and 100 mL of blood loss. The patient was then subsequently transferred to recovery room in stable condition. Sponge and needle counts were correct. Implants: Indications for Procedure: Operative Findings: Description of Procedure:
[2016-07-16] MEDS: IV FLUID CONTINUATION 900 ML IV ONE ×2 (18:10→21:39)
[2016-07-16] MEDS ORDERED: HYDROmorphone 1 MG/ML 1 ML SYRINGE IVP PRN ×3 (18:11)
[2016-07-16] MEDS ORDERED: TEMAZEPAM 15 MG CAP PO PRN (18:11)
[2016-07-16] MEDS ORDERED: NALOXONE 0.4 MG/ML 1 ML VIAL IV PRN (18:11)
[2016-07-16] MEDS ORDERED: HYDROcodone/APAP 5-325MG 1 EACH TAB PO PRN (18:11)
[2016-07-16] MEDS ORDERED: LACTATED RINGERS 1,000 ML IV ONE (19:05)
--- NOTE | 2016-07-16 19:23 | P.PN ---
Subjective this is a pleasant 80-year-old female patient of Dr. Macias currently resides at [facility]. She has underlying history off GERD and dementia osteoarthritis previous CVA, osteoporosis and impaired balance impaired gait. She normally uses wheelchair for community ambulation and was in the bathroom apparently had slipped, had fallen down hitting her right hip and right shoulder. Patient has advanced dementia and not having enough memory to recollect eventsprior to the fall. Patient was evaluated in emergency room with imaging studies to include a right to shoulder x-ray which showed acute, comminuted Minimally displacedright proximal humeral head fracture through the surgical neck, hip x-rays pelvis x- ray shows displaced right femoral neck fracture, vascular calcifications and pelvis noted with large calcifications that may represent fibroid, diffuse OSHA carola and degenerative changes of the spine with arthropathy involving both hipsEKG shows normal sinus rhythm heart rate 69 left bundle branch block no acute ST-T wave changes nonspecific ST-T wave changes in V4 to V6, chest x-ray shows cardiomegaly with right humeral neck fracture, no focal airspace opacification pleural effusion or pneumothorax patient was admitted to Dr. Gomez, orthopedics were consulted for medical management and preop clearancepatient night denies any chest pain shortness of breath difficulty breathing no cough no fever no chills. Urinalysis was obtained and was negative, hemoglobin is 12,platelet count of 226 creatinine of 0.70 07/16: Patient's to undergo left intramedullary nailing of hip fracture, right side. No plans for surgical intervention on the right humeral fracture. Hypoxemia noted earlier prior to surgery this was rechecked at 95% on room air patient's without any symptoms patient would comply on incentive spirometry, BNP is normal Objective - Vital Signs Vital signs: Vital Signs Temp 99 F 07/16/16 18:14 Pulse 61 07/16/16 19:00 Resp 18 07/16/16 19:00 BP 132/64 07/16/16 19:00 Pulse Ox 93 L 07/16/16 19:00 Intake & Output 07/16/16 07/16/16 07/17/16 06:59 18:59 06:59 Intake Total 720 1310 250 Output Total 1200 400 Balance -480 910 250 Intake: IV 720 1310 250 Sodium Chloride 0.9% 1, 720 560 000 ml @ 80 mls/hr IV . [id number] MARYURI Rx#:[id number] Output: Urine 1200 350 Uretheral (Zapata) 300 Estimated Blood Loss 50 Other: Voiding Method Indwelling Catheter Indwelling Catheter - Constitutional General appearance: Present: average body habitus, cooperative - EENT Eyes: Present: anicteric sclerae, EOMI, PERRLA, normal appearance ENT: Present: hearing grossly normal, NA/AT, normal oropharynx. Absent: hard of hearing, other, pharyngeal erythema, thrush, tonsillar exudates, tonsillar swelling - Neck Neck: Present: normal ROM. Absent: lymphadenopathy, other, rigidity, stridor, thyromegaly - Respiratory Respiratory: bilateral: CTA, negative: diminished, dullness, rales, rhonchi, wheezing - Cardiovascular Rhythm: regular Heart sounds: normal: S1, S2 Abnormal Heart Sounds: Absent: systolic murmur, diastolic murmur, rub, S3 Gallop , S4 Gallop, click, other - Gastrointestinal General gastrointestinal: Present: normal bowel sounds, soft - Integumentary Integumentary: Present: normal, normal turgor - Neurologic Neurologic: Present: CNII-XII intact - Musculoskeletal Musculoskeletal: Present: strength equal bilaterally - Psychiatric Psychiatric: Present: A&O x's 3, appropriate affect - Labs CBC & Chem 7: 07/16/16 07:04 07/16/16 07:04 Labs: Abnormal Lab Results - Last 24 Hours (Table) 07/16/16 07/16/16 Range/Units 07:04 07:04 Lymphocytes # 0.7 L (1.0-4.8) k/uL Potassium 3.4 L (3.5-5.1) mmol/L Glucose 122 H (74-99) mg/dL Total Protein 6.2 L (6.3-8.2) g/dL Albumin 3.2 L (3.5-5.0) g/dL Assessment and Plan Plan: 1. traumatic fractures from a sitting position at a wheel hair level sustaining fractures in the humerus, She is to undergo surgical intervention plaaned for 07/16. She will be classified as class 2 ASA risk with preexisting controlled disease undergoing surgical orthopedic intervention. She is cleared with moderate risk, we will monitor for perioperative complications and address other issues corresponding to her premorbid conditions. Incentive spirometry is provided. DVT prophylasxis with heparin sq 5000u q12 hrs to be held 12 hrs prior to surgery. 2. advanced osteoporosis secondary to advanced age 3. Dementia, alzheimers type, on aricept 4. Osteoarthritis, impaired balance , wheelchair on community ambulation. therapies are consulted 5. VTE prophylaxis with heparin SQ. can be transitioned to oral aspirin post op. 6. GI prophylaxis. on ppi or h2 blayne 7. Discharge planning. expected return to [facility] with therapies 8. Intermittent hypoxemia most likely secondary to developing atelectasis, no signs of CHF currently. Continue to monitor O2 on a when necessary basis
[2016-07-16] MEDS: SENNOSIDES-DOCUSATE SODIUM 1 EACH TAB PO SCH (21:28)
[2016-07-16] MEDS: traZODone HCL 50 MG TAB PO SCH (21:29)
[2016-07-16] MEDS: LACTATED RINGERS 1,000 ML IV SCH (22:57)
[2016-07-17] MEDS: ceFAZolin 2 GM in SODIUM CHLORIDE 0.9% 100 ML IVPB SCH ×2 (00:03→08:52)
[2016-07-17] MEDS: HYDROcodone/APAP 5-325MG 1 EACH TAB PO PRN (04:52)
[2016-07-17] MEDS: LACTATED RINGERS 1,000 ML IV SCH ×4 (06:59→22:55)
[2016-07-17] MEDS: SODIUM CHLORIDE 0.9% 1,000 ML IV SCH ×2 (07:03→20:12)
[2016-07-17 07:46] LABS: INR 1.2 (<1.1); Prothrombin Time 11.6 sec (9.0-12.0)
[2016-07-17 08:05] LABS: ALT 30 U/L (9-52); AST 14 U/L (14-36); Alkaline Phosphatase 50 U/L (38-126); Anion Gap 9 mmol/L; Blood Urea Nitrogen 16 mg/dL (7-17); Calcium 8.4 mg/dL (8.4-10.2); Carbon Dioxide 25 mmol/L (22-30); Chloride 106 mmol/L (98-107); Glucose 127 mg/dL (74-99); Non-African American GFR(MDRD) >60 (>60 ml/min/1.73 sqM); Potassium 3.5 mmol/L (3.5-5.1); Sodium 140 mmol/L (137-145); Total Bilirubin 0.6 mg/dL (0.2-1.3); Total Protein 5.2 g/dL (6.3-8.2)
[2016-07-17 08:10] LABS: Basophils % (A) 1 %; CH 31.7; Eosinophils # (A) 0.2 k/uL (0-0.7); Eosinophils % (A) 2 %; HCT 25.7 % (34.0-46.0); Luc # (Auto) 0.05; Luc % (Auto) 1; Lymphocytes # (A) 1.1 k/uL (1.0-4.8); Lymphocytes % (A) 14 %; MCH 31.3 pg (25.0-35.0); MCHC 35.4 g/dL (31.0-37.0); MCV 88.4 fL (80.0-100.0); Mean Platelet Volume 7.8; Monocytes # (A) 0.4 k/uL (0-1.0); Monocytes % (A) 5 %; Neutrophils # (A) 6.1 k/uL (1.3-7.7); Neutrophils % (A) 78 %; RBC 2.91 m/uL (3.80-5.40); RDW 13.3 % (11.5-15.5); WBC 7.8 k/uL (3.8-10.6); WBC (Perox) 8.43
[2016-07-17 08:11] LABS: HGB 9.1 gm/dL (11.4-16.0)
[2016-07-17] MEDS: risperiDONE 0.25 MG TAB PO SCH ×3 (08:52→20:19)
[2016-07-17] MEDS: PANTOPRAZOLE 40 MG/10 ML VIAL IV SCH (08:53)
[2016-07-17] MEDS: MELOXICAM 7.5 MG TAB PO SCH (08:53)
[2016-07-17] MEDS: HEPARIN SODIUM,PORCINE 5,000 UNIT/ML 1 ML VIAL SQ SCH ×2 (08:54→20:18)
[2016-07-17] MEDS: TIMOLOL 0.5% OPHTH DROPS 5 ML BTL BOTH EYES SCH ×2 (08:54→20:19)
--- NOTE | 2016-07-17 09:03 | P.PN ---
Subjective Principal diagnosis: Right hip fracture, proximal humerus fracture This is a 80-year-old female who sustained a sustained a fall out of her wheelchair injuring her right hip and shoulder. X-rays revealed minimally displaced intertrochanteric fracture and nondisplaced fracture of the right proximal humerus. The patient underwent IT nailing of the right hip yesterday with Dr. Gomez. Today's postoperative day #1. The patient is seen and evaluated at bedside. She does have baseline dementia. She complains of right shoulder pain. She complains of minimal hip pain at this time. Objective - Vital Signs Vital signs: Vital Signs Temp 97.8 F 07/17/16 02:00 Pulse 69 07/17/16 02:00 Resp 16 07/17/16 02:00 BP 119/59 07/17/16 02:00 Pulse Ox 97 07/17/16 02:00 Intake & Output 07/16/16 07/17/16 07/17/16 18:59 06:59 18:59 Intake Total 1310 1210 Output Total 400 325 Balance 910 885 Intake: IV 1310 1210 Lactated Ringers 1,000 ml 800 @ 100 mls/hr IV .Q10H MARYURI Rx#:[id number] Sodium Chloride 0.9% 1, 560 160 000 ml @ 80 mls/hr IV . [id number] MARYURI Rx#:[id number] Output: Urine 350 325 Uretheral (Zapata) 300 325 Estimated Blood Loss 50 Other: Voiding Method Indwelling Catheter Indwelling Catheter - Exam The patient does not appear in acute distress. She has baseline dementia. Sling is intact to the right upper extremity. She has pain to palpation of the proximal humerus. She is able to wiggle her fingers freely without difficulty or pain. Sensation and circulatory status is intact to the right upper extremity. Dressing is intact to the patient's right hip. There is no erythema or active drainage. Calf is soft and nontender. She wiggles her toes freely without difficulty or pain. Sensation and circulatory status is intact. - Labs CBC & Chem 7: 07/17/16 07:05 07/17/16 07:05 Labs: Abnormal Lab Results - Last 24 Hours (Table) 07/17/16 07/17/16 Range/Units 07:05 07:05 RBC 2.91 L (3.80-5.40) m/uL Hgb 9.1 L D (11.4-16.0) gm/dL Hct 25.7 L (34.0-46.0) % Glucose 127 H (74-99) mg/dL Total Protein 5.2 L (6.3-8.2) g/dL Albumin 2.5 L (3.5-5.0) g/dL Assessment and Plan (1) Closed fracture of right proximal humerus Status: Acute (2) Closed intertrochanteric fracture of right hip Status: Acute (3) Fall Status: Acute Plan: Continue with routine postoperative care. Pain control and anticoagulation. Sling to the right upper extremity. The patient is nonweightbearing to the right upper extremity and weightbearing to tolerance to the right lower extremity. The patient will likely be transferred back to [facility] in the next 48 hours depending upon her course.
--- NOTE | 2016-07-17 09:30 | FL ---
EXAMINATION TYPE: FL guidance operating room DATE OF EXAM: 07/16/2016 5:59 PM HISTORY: Flouroscopy time 42 seconds of fluoroscopy provided. IMPRESSION: 1. Fluoroscopy time.
--- NOTE | 2016-07-17 09:34 | XR ---
EXAMINATION TYPE: XR Hip Complete RT DATE OF EXAM: 07/16/2016 5:59 PM COMPARISON: NONE HISTORY: Stent There is surgical change in near anatomic alignment. There is soft tissue edema and emphysema. IMPRESSION: 1. Postoperative change. Appears in near-anatomic alignment.
[2016-07-17 11:54] VITALS: BMI 23.9
[2016-07-17] MEDS: MULTIVITAMINS, THERA 1 EACH TAB PO SCH (18:49)
[2016-07-17] MEDS: SENNOSIDES-DOCUSATE SODIUM 1 EACH TAB PO SCH (20:18)
[2016-07-17] MEDS: DONEPEZIL 10 MG TAB PO SCH (20:18)
[2016-07-17] MEDS: traZODone HCL 50 MG TAB PO SCH (20:19)
--- NOTE | 2016-07-17 22:10 | P.PN ---
Subjective this is a pleasant 80-year-old female patient of Dr. Macias currently resides at [facility]. She has underlying history off GERD and dementia osteoarthritis previous CVA, osteoporosis and impaired balance impaired gait. She normally uses wheelchair for community ambulation and was in the bathroom apparently had slipped, had fallen down hitting her right hip and right shoulder. Patient has advanced dementia and not having enough memory to recollect eventsprior to the fall. Patient was evaluated in emergency room with imaging studies to include a right to shoulder x-ray which showed acute, comminuted Minimally displacedright proximal humeral head fracture through the surgical neck, hip x-rays pelvis x- ray shows displaced right femoral neck fracture, vascular calcifications and pelvis noted with large calcifications that may represent fibroid, diffuse OSHA carola and degenerative changes of the spine with arthropathy involving both hipsEKG shows normal sinus rhythm heart rate 69 left bundle branch block no acute ST-T wave changes nonspecific ST-T wave changes in V4 to V6, chest x-ray shows cardiomegaly with right humeral neck fracture, no focal airspace opacification pleural effusion or pneumothorax patient was admitted to Dr. Gomez, orthopedics were consulted for medical management and preop clearancepatient night denies any chest pain shortness of breath difficulty breathing no cough no fever no chills. Urinalysis was obtained and was negative, hemoglobin is 12,platelet count of 226 creatinine of 0.70 07/16: Patient's to undergo left intramedullary nailing of hip fracture, right side. No plans for surgical intervention on the right humeral fracture. Hypoxemia noted earlier prior to surgery this was rechecked at 95% on room air patient's without any symptoms patient would comply on incentive spirometry, BNP is normal 07/17. patient denies any complaints, no chest pain or hsortness of breath, no nausea. she was noted to be hypotensive, no symptoms during this episodes, patient remains in bed. fluid boluses given, she is not on any hypertensive agents if stable by tomorrow, may return to [facility]. Objective - Vital Signs Vital signs: Vital Signs Temp 97.8 F 07/17/16 02:00 Pulse 69 07/17/16 02:00 Resp 16 07/17/16 02:00 BP 119/59 07/17/16 02:00 Pulse Ox 97 07/17/16 02:00 Intake & Output 07/17/16 07/17/16 07/18/16 06:59 18:59 06:59 Intake Total 1210 1170 Output Total 325 50 Balance 885 1120 Weight 61.235 kg Intake: IV 1210 850 Lactated Ringers 1,000 ml 800 850 @ 100 mls/hr IV .Q10H MARYURI Rx#:[id number] Sodium Chloride 0.9% 1, 160 000 ml @ 80 mls/hr IV . [id number] MARYURI Rx#:[id number] Oral 320 Output: Urine 325 50 Uretheral (Zapata) 325 50 Other: Voiding Method Indwelling Catheter Indwelling Catheter - Constitutional General appearance: Present: average body habitus, cooperative, no acute distress - EENT Eyes: Present: anicteric sclerae, EOMI, PERRLA, dentition normal, normal appearance ENT: Present: hearing grossly normal, NA/AT, normal oropharynx - Neck Neck: Present: normal ROM - Respiratory Respiratory: bilateral: CTA, negative: diminished, dullness, rales, rhonchi, wheezing, prolonged expiration - Cardiovascular Rhythm: regular Abnormal Heart Sounds: Absent: systolic murmur, diastolic murmur, rub, S3 Gallop , S4 Gallop, click, other - Gastrointestinal General gastrointestinal: Present: normal bowel sounds, soft - Integumentary Integumentary: Present: normal, normal turgor - Neurologic Neurologic: Present: CNII-XII intact - Labs CBC & Chem 7: 07/17/16 07:05 07/17/16 07:05 Labs: Abnormal Lab Results - Last 24 Hours (Table) 07/17/16 07/17/16 Range/Units 07:05 07:05 RBC 2.91 L (3.80-5.40) m/uL Hgb 9.1 L D (11.4-16.0) gm/dL Hct 25.7 L (34.0-46.0) % Glucose 127 H (74-99) mg/dL Total Protein 5.2 L (6.3-8.2) g/dL Albumin 2.5 L (3.5-5.0) g/dL Assessment and Plan Plan: 1. traumatic fractures from a sitting position at a wheel hair level sustaining fractures in the humerus, She is to undergo surgical intervention plaaned for 07/16. She will be classified as class 2 ASA risk with preexisting controlled disease undergoing surgical orthopedic intervention. She is cleared with moderate risk, we will monitor for perioperative complications and address other issues corresponding to her premorbid conditions. Incentive spirometry is provided. DVT prophylasxis with heparin sq 5000u q12 hrs to be held 12 hrs prior to surgery. 2. advanced osteoporosis secondary to advanced age 3. Dementia, alzheimers type, on aricept 4. Osteoarthritis, impaired balance , wheelchair on community ambulation. therapies are consulted 5. VTE prophylaxis with heparin SQ. can be transitioned to oral aspirin post op. 6. GI prophylaxis. on ppi or h2 blayne 7. Discharge planning. expected return to [facility] assisted with therapies 8. Intermittent hypoxemia most likely secondary to developing atelectasis, no signs of CHF currently. Continue to monitor O2 on a when necessary basis 9. transient hypotension possible from hypovolemia. fluid boluses give, ensure supplements for nutrition. patient is not on any antihypertensiveurinalysis with culture requested discharge planning. anticipate return to [facility], this weekend if bp stabilized
[2016-07-18] MEDS: HYDROcodone/APAP 5-325MG 1 EACH TAB PO PRN (01:48)
[2016-07-18 07:21] LABS: Basophils % (A) 0 %; CH 31.6; CHCM 35.9; Eosinophils # (A) 0.3 k/uL (0-0.7); Eosinophils % (A) 6 %; HCT 21.9 % (34.0-46.0); HDW 3.19; HGB 7.7 gm/dL (11.4-16.0); Luc # (Auto) 0.11; Luc % (Auto) 2; Lymphocytes # (A) 1.2 k/uL (1.0-4.8); Lymphocytes % (A) 20 %; MCH 30.9 pg (25.0-35.0); MCV 88.2 fL (80.0-100.0); Mean Platelet Volume 6.8; Monocytes # (A) 0.3 k/uL (0-1.0); Monocytes % (A) 6 %; Neutrophils # (A) 4.1 k/uL (1.3-7.7); Neutrophils % (A) 67 %; RBC 2.48 m/uL (3.80-5.40); RDW 13.5 % (11.5-15.5); WBC 6.1 k/uL (3.8-10.6); WBC (Perox) 6.51
[2016-07-18 07:46] LABS: Anion Gap 8 mmol/L; Blood Urea Nitrogen 21 mg/dL (7-17); Calcium 8.1 mg/dL (8.4-10.2); Carbon Dioxide 27 mmol/L (22-30); Chloride 106 mmol/L (98-107); Glucose 110 mg/dL (74-99); Non-African American GFR(MDRD) >60 (>60 ml/min/1.73 sqM); Potassium 3.4 mmol/L (3.5-5.1); Sodium 141 mmol/L (137-145)
[2016-07-18] MEDS: risperiDONE 0.25 MG TAB PO SCH ×3 (08:21→22:13)
[2016-07-18] MEDS: HEPARIN SODIUM,PORCINE 5,000 UNIT/ML 1 ML VIAL SQ SCH ×2 (08:21→22:13)
[2016-07-18] MEDS: MELOXICAM 7.5 MG TAB PO SCH (08:21)
[2016-07-18] MEDS: PANTOPRAZOLE 40 MG TABLET PO SCH (08:21)
[2016-07-18] MEDS: TIMOLOL 0.5% OPHTH DROPS 5 ML BTL BOTH EYES SCH ×2 (08:22→22:12)
[2016-07-18] MEDS: SODIUM CHLORIDE 0.9% 1,000 ML IV SCH ×2 (09:34→22:13)
[2016-07-18] MEDS ORDERED: LACTATED RINGERS 500 ML IV ONE (12:00)
--- NOTE | 2016-07-18 16:13 | P.PN ---
Subjective Principal diagnosis: Right Hip fracture, humerus fracture Patient seen at bedside today. She is post op day #2 from right IT nail insertion per Dr. Gomez. She has no new complaints. She has post op pain as expected. She denies numbness, tingling or calf pain. ROS is negative for fever , chills, chest pain, SOB or other. Objective - Vital Signs Vital signs: Vital Signs Temp 97.9 F 07/18/16 14:08 Pulse 57 L 07/18/16 14:08 Resp 16 07/18/16 14:08 BP 131/58 07/18/16 14:08 Pulse Ox 95 07/18/16 14:08 Intake & Output 07/17/16 07/18/16 07/18/16 18:59 06:59 18:59 Intake Total 1170 1400 1360 Output Total 50 250 100 Balance 1120 1150 1260 Weight 61.235 kg Intake: IV 850 1100 1000 Lactated Ringers 1,000 ml 850 1100 500 @ 100 mls/hr IV .Q10H MARYURI Rx#:[id number] Lactated Ringers 500 ml @ 500 999 mls/hr IV .Q31M ONE Rx#:[id number] Oral 320 300 360 Output: Urine 50 250 100 Uretheral (Zapata) 50 250 100 Other: Voiding Method Indwelling Catheter Indwelling Catheter Indwelling Catheter - Exam Surgical wound is benign. No active bleeding, drainage, or dehiscence. Neuro status intact with motor and sensation throughout right lower extremity. Calf is soft and nontender. 2+ pulses and less than 2 sec cap refill present. Right upper extremity is in sling. NVI intact with forearm, hand and digits. 2 + radial pulse and less than 2 sec cap refill present - Constitutional General appearance: Present: no acute distress - Psychiatric Psychiatric: Present: A&O x's 3, appropriate affect, intact judgment & insight - Labs CBC & Chem 7: 07/18/16 06:36 07/18/16 06:36 Labs: Abnormal Lab Results - Last 24 Hours (Table) 07/18/16 07/18/16 Range/Units 06:36 06:36 RBC 2.48 L (3.80-5.40) m/uL Hgb 7.7 L (11.4-16.0) gm/dL Hct 21.9 L (34.0-46.0) % Plt Count 149 L (150-450) k/uL Potassium 3.4 L (3.5-5.1) mmol/L BUN 21 H (7-17) mg/dL Glucose 110 H (74-99) mg/dL Calcium 8.1 L (8.4-10.2) mg/dL Microbiology - Last 24 Hours (Table) 07/17/16 17:20 Urine Culture - Preliminary Urine,Catheterized Assessment and Plan (1) Closed fracture of right proximal humerus Narrative/Plan: She will continue with routine postop orthopedic protocol including wound care, PT, pain management, DVT prophylaxis, and medical management. Expect transfer to [facility] Wednesday. Status: Acute (2) Closed intertrochanteric fracture of right hip Status: Acute
[2016-07-18] MEDS: MULTIVITAMINS, THERA 1 EACH TAB PO SCH (18:06)
[2016-07-18] MEDS: LACTATED RINGERS 1,000 ML IV SCH ×3 (22:10→23:17)
[2016-07-18] MEDS: DONEPEZIL 10 MG TAB PO SCH (22:13)
[2016-07-18] MEDS: traZODone HCL 50 MG TAB PO SCH (22:13)
[2016-07-18] MEDS: SENNOSIDES-DOCUSATE SODIUM 1 EACH TAB PO SCH (22:14)
[2016-07-19] MEDS: SODIUM CHLORIDE 0.9% 1,000 ML IV SCH ×3 (04:09→20:59)
[2016-07-19] MEDS: LACTATED RINGERS 1,000 ML IV SCH ×4 (05:15→21:15)
[2016-07-19 07:43] LABS: ALT 27 U/L (9-52); AST 19 U/L (14-36); Alkaline Phosphatase 49 U/L (38-126); Anion Gap 6 mmol/L; Blood Urea Nitrogen 12 mg/dL (7-17); Calcium 8.1 mg/dL (8.4-10.2); Carbon Dioxide 26 mmol/L (22-30); Chloride 106 mmol/L (98-107); Glucose 107 mg/dL (74-99); Non-African American GFR(MDRD) >60 (>60 ml/min/1.73 sqM); Potassium 3.3 mmol/L (3.5-5.1); Sodium 138 mmol/L (137-145); Total Bilirubin 0.6 mg/dL (0.2-1.3); Total Protein 4.9 g/dL (6.3-8.2)
[2016-07-19] MEDS: TIMOLOL 0.5% OPHTH DROPS 5 ML BTL BOTH EYES SCH ×2 (08:26→20:55)
[2016-07-19] MEDS: HEPARIN SODIUM,PORCINE 5,000 UNIT/ML 1 ML VIAL SQ SCH ×2 (08:27→20:56)
[2016-07-19] MEDS: risperiDONE 0.25 MG TAB PO SCH ×3 (08:27→20:55)
[2016-07-19] MEDS: PANTOPRAZOLE 40 MG TABLET PO SCH (08:27)
[2016-07-19] MEDS: MELOXICAM 7.5 MG TAB PO SCH (08:27)
[2016-07-19 08:45] LABS: Basophils % (A) 1 %; CH 31.9; CHCM 36.9; Eosinophils # (A) 0.4 k/uL (0-0.7); Eosinophils % (A) 6 %; HCT 20.6 % (34.0-46.0); HDW 3.38; HGB 7.5 gm/dL (11.4-16.0); Hyperchromasia Slight; Luc # (Auto) 0.09; Luc % (Auto) 2; Lymphocytes # (A) 1.1 k/uL (1.0-4.8); Lymphocytes % (A) 20 %; MCH 31.5 pg (25.0-35.0); MCHC 36.2 g/dL (31.0-37.0); MCV 86.9 fL (80.0-100.0); Mean Platelet Volume 8.4; Monocytes # (A) 0.4 k/uL (0-1.0); Monocytes % (A) 7 %; Neutrophils # (A) 3.7 k/uL (1.3-7.7); Neutrophils % (A) 65 %; RBC 2.37 m/uL (3.80-5.40); RDW 13.3 % (11.5-15.5); WBC 5.7 k/uL (3.8-10.6); WBC (Perox) 5.99
--- NOTE | 2016-07-19 10:46 | P.PN ---
Subjective Principal diagnosis: Right Hip fracture, humerus fracture Patient seen at bedside today. She is post op day #3 from right IT nail insertion per Dr. Gomez. She has no new complaints. She has post op pain as expected but controlled. She is no complaining of arm pain. She denies numbness , tingling or calf pain. ROS is negative for fever, chills, chest pain, SOB or other. Objective - Vital Signs Vital signs: Vital Signs Temp 98.2 F 07/19/16 08:00 Pulse 65 07/19/16 08:00 Resp 14 07/19/16 08:00 BP 151/68 07/19/16 08:00 Pulse Ox 97 07/19/16 08:00 Intake & Output 07/18/16 07/19/16 07/19/16 18:59 06:59 18:59 Intake Total 1480 200 440 Output Total 100 1000 Balance 1380 -800 440 Weight 61.235 kg Intake: IV 1000 Lactated Ringers 1,000 ml 500 @ 100 mls/hr IV .Q10H MARYURI Rx#:[id number] Lactated Ringers 500 ml @ 500 999 mls/hr IV .Q31M ONE Rx#:[id number] Oral 480 200 440 Output: Urine 100 1000 Uretheral (Zapata) 100 Other: Voiding Method Indwelling Catheter Indwelling Catheter Indwelling Catheter - Exam Surgical wound is benign. No active bleeding, drainage, or dehiscence. Neuro status intact with motor and sensation throughout right lower extremity. Calf is soft and nontender. 2+ pulses and less than 2 sec cap refill present. Right upper extremity is in sling. NVI with forearm, hand and digits. 2+ radial pulse and less than 2 sec cap refill present - Constitutional General appearance: Present: no acute distress - Psychiatric Psychiatric: Present: A&O x's 3, appropriate affect, intact judgment & insight - Labs CBC & Chem 7: 07/19/16 06:51 07/19/16 06:51 Labs: Abnormal Lab Results - Last 24 Hours (Table) 07/19/16 07/19/16 Range/Units 06:51 06:51 RBC 2.37 L (3.80-5.40) m/uL Hgb 7.5 L (11.4-16.0) gm/dL Hct 20.6 L (34.0-46.0) % Potassium 3.3 L (3.5-5.1) mmol/L Creatinine 0.50 L (0.52-1.04) mg/dL Glucose 107 H (74-99) mg/dL Calcium 8.1 L (8.4-10.2) mg/dL Total Protein 4.9 L (6.3-8.2) g/dL Albumin 2.4 L (3.5-5.0) g/dL Microbiology - Last 24 Hours (Table) 07/17/16 17:20 Urine Culture - Final Urine,Catheterized Assessment and Plan (1) Closed fracture of right proximal humerus Narrative/Plan: She will continue with routine postop orthopedic protocol including wound care, PT, pain management, DVT prophylaxis, and medical management. Expect transfer to [facility] Wednesday. Status: Acute (2) Closed intertrochanteric fracture of right hip Status: Acute
[2016-07-19] MEDS ORDERED: POTASSIUM CHLORIDE ER 20 MEQ TAB.ER PO STA (12:18)
--- NOTE | 2016-07-19 12:35 | PN ---
INTERVAL HISTORY: The patient continues to be at baseline mental where she is alert, awake, follow simple commands but confused and disoriented. Patient had problem with a urinary retention and Zapata catheter was inserted and her urine output noted to be margin with less than 25 mL per hour. Patient with decreased oral intake and I started the patient on IV fluid with 500 bolus. Blood pressure continues to be lower side and responded to bolus yesterday and today her hemoglobin is 7.7. PHYSICAL EXAMINATION: VITAL SIGNS: Temperature 97.5, heart rate 61, respiratory rate 16, blood pressure 119/60, saturation is 94% on room air. LUNGS: Diminished bilaterally. CARDIOVASCULAR: S1, S2. ABDOMEN: Soft, positive bowel sounds in all 4 quadrants. SKIN: No new rash. PSYCHIATRY: As above. Imaging and labs: Hemoglobin is 7.7, and platelets white blood count within normal limits. Kidney function reveals normal findings, potassium is 3.4, calcium 8.1, glucose 110. Urine culture still pending, negative. ASSESSMENT AND PLAN: 1. New onset hypotension, with oliguria. The patient with decreased urine output. I instructed the nurses staff to give another bolus of 500 mL of normal saline. Blood pressure seems to be improved since yesterday after the first bolus and 125 mL of continuous infusion. I would like to monitor urine output and keep the Zapata catheter in place until we monitor for improvement. 2. Acute blood loss anemia, secondary to operation. Patient hemoglobin 7.7, no need for any transfusion at this point. We will monitor patient conservatively. 3. Traumatic fracture from sitting position with humerus fracture. We will continue monitoring, continue deep venous thrombosis prophylaxis per primary recommendation. 4. Dementia Alzheimer's' type. Will continue Aricept. 5. Discharge planning: will hold on discharge planning until we have improvement in the urine output and stabilization and blood pressure as above.
[2016-07-19] MEDS: MULTIVITAMINS, THERA 1 EACH TAB PO SCH (17:57)
[2016-07-19] MEDS ORDERED: SODIUM CHLORIDE 0.9% 1,000 ML IV SCH (18:30)
[2016-07-19] MEDS: DONEPEZIL 10 MG TAB PO SCH (20:55)
[2016-07-19] MEDS: traZODone HCL 50 MG TAB PO SCH (20:56)
[2016-07-19] MEDS: SENNOSIDES-DOCUSATE SODIUM 1 EACH TAB PO SCH (20:59)
[2016-07-20 02:02] VITALS: PULSE 62
[2016-07-20 07:32] VITALS: BP 182/72; RESP 14; TEMP 97.4
[2016-07-20] MEDS: risperiDONE 0.25 MG TAB PO SCH (08:23)
[2016-07-20] MEDS: MELOXICAM 7.5 MG TAB PO SCH (08:23)
[2016-07-20] MEDS: HEPARIN SODIUM,PORCINE 5,000 UNIT/ML 1 ML VIAL SQ SCH (08:23)
[2016-07-20] MEDS: PANTOPRAZOLE 40 MG TABLET PO SCH (08:23)
[2016-07-20] MEDS: TIMOLOL 0.5% OPHTH DROPS 5 ML BTL BOTH EYES SCH (08:23)
--- NOTE | 2016-07-20 11:41 | P.DS ---
Providers Date of admission: 07/15/16 16:11 Expected date of discharge: 07/20/16 Attending physician: Chaz Gomez Primary care physician: Karen Macias - Discharge Diagnosis(es) (1) Closed fracture of right proximal humerus Patient was admitted to the OR on 07/16/2016 for intramedullary nailing of an IT nail for her right hip fracture which she suffered as a result of a fall. She underwent the above procedure which she tolerated well without complication. Her postoperative hospital course has remained without complication. She's also had a nondisplaced proximal humerus fracture which has been treated in a sling. On day of discharge she has no new complaints. Her pain is controlled. She is denying numbness or tingling. She also denies calf pain or abdominal pain. On day of discharge her labs are within acceptable ranges, vital signs are stable wounds are benign, tolerating by mouth diet and meds, positive flatus, urinating without difficulty, neurovascular status intact, vascular perfusion to the lower extremity is intact , calf is soft and nontender, abdomen is soft nontender. Review of systems negative for fever, chills, chest pain, shortness breath, nausea, vomiting, dizziness, headaches, rashes, slurred speech or other. Current Visit: Yes Status: Acute Priority: Medium (2) Closed intertrochanteric fracture of right hip Current Visit: Yes Status: Acute Priority: Medium Patient Condition at Discharge: Stable Plan - Discharge Summary New Discharge Prescriptions: LORazepam [Ativan] 0.5 mg PO Q12H PRN #14 tab PRN Reason: Anxiety traMADol HCL [Ultram] 50 mg PO Q6HR PRN #30 tab PRN Reason: Pain traZODone HCL [Desyrel] 50 mg PO HS #30 tab Discharge Medication List Acetaminophen Tab [Tylenol] 650 mg PO DAILY 07/15/16 [History] Acetaminophen Tab [Tylenol] 650 mg PO Q4H PRN 07/15/16 [History] Aspirin EC [Ecotrin Low Dose] 162 mg PO DAILY@1700 07/15/16 [History] Bisacodyl [Dulcolax] 10 mg RECTAL DAILY PRN 07/15/16 [History] Donepezil [Aricept] 10 mg PO HS 07/15/16 [History] Magnesium Hydroxide [Milk of Magnesia Concentrate] 7,200 mg PO DAILY PRN [History] Meloxicam [Mobic] 7.5 mg PO DAILY 07/15/16 [History] Multivitamins, Thera [Multivitamin] 1 tab PO DAILY@1700 07/15/16 [History] Na Phos,M-B/Na Phos,Di-Ba [Fleet Adult] 133 ml RECTAL DAILY PRN 07/15/16 [ History] Omeprazole [PriLOSEC] 20 mg PO DAILY 07/15/16 [History] Timolol 0.5% Ophth Soln [Timoptic 0.5% Ophth Soln] 1 drop BOTH EYES BID [History] risperiDONE [RisperDAL] 0.25 mg PO TID@0800,1400,2000 07/15/16 [History] LORazepam [Ativan] 0.5 mg PO Q12H PRN #14 tab 07/20/16 [Rx] Sennosides-Docusate Sodium [Senokot-S] 2 each PO HS tab 07/20/16 [Rx] traMADol HCL [Ultram] 50 mg PO Q6HR PRN #30 tab 07/20/16 [Rx] traZODone HCL [Desyrel] 50 mg PO HS #30 tab 07/20/16 [Rx] Follow up Appointment(s)/Referral(s): Karen Macias MD [Primary Care Provider] - 1-2 days Chaz Gomez MD [STAFF PHYSICIAN] - 10 Days Activity/Diet/Wound Care/Special Instructions: Keep wound clean and dry Take meds as directed Follow-up with Dr. Gomez in office in 10-14 days Touchdown weightbearing right lower extremity Nonweightbearing right upper extremity Maintain sling Discharge Disposition: TRANSFER TO SNF/ECF
[2016-07-20 12:07] LABS: Basophils % (A) 1 %; CH 31.3; CHCM 35.6; Eosinophils # (A) 0.2 k/uL (0-0.7); Eosinophils % (A) 4 %; HCT 21.6 % (34.0-46.0); HDW 3.62; HGB 7.7 gm/dL (11.4-16.0); Luc # (Auto) 0.07; Luc % (Auto) 1; Lymphocytes % (A) 16 %; MCH 31.4 pg (25.0-35.0); MCHC 35.4 g/dL (31.0-37.0); MCV 88.5 fL (80.0-100.0); Mean Platelet Volume 7.4; Monocytes # (A) 0.3 k/uL (0-1.0); Monocytes % (A) 4 %; Neutrophils # (A) 4.7 k/uL (1.3-7.7); Neutrophils % (A) 75 %; Poikilocytosis Slight; RBC 2.44 m/uL (3.80-5.40); RDW 13.6 % (11.5-15.5); WBC 6.3 k/uL (3.8-10.6); WBC (Perox) 6.89
== END 2016-07-20 13:00 | DRG 481 ==
LOC: EC 11:45 → 3SUR 16:11
PROVIDERS: ADMIT Orthopaedic Surgery; ATTEND Orthopaedic Surgery
PROC: 0T9B70Z Drainage of Bladder with Drainage Device, Via Natural or Artificial Opening (ICD-10-PCS; 2016-07-15)
PROC: 2W3AXYZ Immobilization of Right Upper Arm using Other Device (ICD-10-PCS; 2016-07-16)
PROC: 0QS636Z Reposition Right Upper Femur with Intramedullary Internal Fixation Device, Percutaneous Approach (ICD-10-PCS; principal; 2016-07-16 07:30)
DX: S72.141A Displaced intertrochanteric fracture of right femur, initial encounter for closed fracture (principal); D62 Acute posthemorrhagic anemia; R34 Anuria and oliguria; I95.9 Hypotension, unspecified; I44.7 Left bundle-branch block, unspecified; G30.9 Alzheimer's disease, unspecified; E86.1 Hypovolemia; F02.80 Dementia in other diseases classified elsewhere, unspecified severity, without behavioral disturbance, psychotic disturbance, mood disturbance, and anxiety; J98.11 Atelectasis; S42.214A Unspecified nondisplaced fracture of surgical neck of right humerus, initial encounter for closed fracture; R33.9 Retention of urine, unspecified; I45.81 Long QT syndrome; R09.02 Hypoxemia; M81.0 Age-related osteoporosis without current pathological fracture; I51.7 Cardiomegaly; M47.819 Spondylosis without myelopathy or radiculopathy, site unspecified; M85.861 Other specified disorders of bone density and structure, right lower leg; H40.9 Unspecified glaucoma; K21.9 Gastro-esophageal reflux disease without esophagitis; R26.9 Unspecified abnormalities of gait and mobility; H54.7 Unspecified visual loss; Z86.73 Personal history of transient ischemic attack (TIA), and cerebral infarction without residual deficits; Z80.6 Family history of leukemia; Z82.49 Family history of ischemic heart disease and other diseases of the circulatory system; Z79.1 Long term (current) use of non-steroidal anti-inflammatories (NSAID); Z79.82 Long term (current) use of aspirin; Z79.899 Other long term (current) drug therapy; W05.0XXA Fall from non-moving wheelchair, initial encounter; Y92.121 Bathroom in nursing home as the place of occurrence of the external cause
CPT/HCPCS: 36415; 51702; 70450; 71010; 72125; 73502; 80048; 80053; 81003; 82550; 83735; 83880; 85025; 85610; 86850; 86900; 86901; 87086; 93005; 99285